=== PATIENT | male | born 1955 | race Caucasian/White ===

== ENCOUNTER 2016-12-31 09:49 | Emergency (ER) | payer OTHER ==
[~2016-12-31] VITALS: Ht 180.3 cm; Wt 96.1 kg
[~2016-12-31 09:49] MED LIST: ASPI81TA25 PO; ATOR-26 PO; CLOP1TAB15 PO; ISOS30TA3 PO; LOSA50TA6 PO; METO100T44 PO; METO50TA7 PO; NTRGSL/4 UT; PANT40TA PO
[2016-12-31 09:55] VITALS: TEMP 36.4; Ht 180.3 cm; Wt 96.1 kg
[2016-12-31] MEDS ORDERED: AMLO-110 PO (10:31)
[2016-12-31 10:33] LABS: BASO % 0.3 %; BASO ABS # 0.02 K/uL (0-0.2); COMPLETE YES; EOS % 3.2 %; HEMATOCRIT 48.2 % (42-52); IG% 0.3 %; LYMPH % 29.7 %; LYMPH ABS # 2.15 K/uL (1.2-3.4); MEAN CELL VOLUME 89.6 fL (80-100); MEAN CORPUSCULAR HEMOGLOBIN 29.9 pg (25-34); MEAN CORPUSCULAR HGB CONC 33.4 g/dl (32-36); MEAN PLATELET VOLUME 11.6 fL (7.4-10.4); MONO % 9.5 %; PLATELET COUNT 173 K/uL (130-400); RED BLOOD COUNT 5.38 M/uL (4.7-6.1); WHITE BLOOD COUNT 7.25 K/uL (4.8-10.8)
[2016-12-31 10:42] LABS: PARTIAL THROMBOPLASTIN RATIO 1.1; PROTHROMBIN TIME (PATIENT) 10.6 SECONDS (9.0-12.0)
[2016-12-31 10:52] LABS: ALT/SGPT 41 U/L (12-78); BLOOD UREA NITROGEN 30 mg/dl (7-18); BUN/CREATININE RATIO 22.9 (10-20); CALCIUM 9.6 mg/dl (8.5-10.1); CARBON DIOXIDE 23 mmol/L (21-32); CHLORIDE 104 mmol/L (98-107); CREATININE 1.31 mg/dl (0.60-1.40); GLUCOSE 105 mg/dl (70-99); POTASSIUM 4.7 mmol/L (3.5-5.1); SODIUM 139 mmol/L (136-145)
--- NOTE | 2016-12-31 10:52 | DIAGNOSTIC IMAGING REPORT ---
CHEST ONE VIEW PORTABLE CLINICAL HISTORY: 61 years-old Male presenting with severe hypertension. TECHNIQUE: Portable upright AP view of the chest was obtained. COMPARISON: 04/13/2012. FINDINGS: Cardiomediastinal silhouette normal. Calcified granuloma suggested at the right lung base. Lungs and pleural spaces otherwise clear. Osseous structures normal. Upper abdomen normal. IMPRESSION: 1. No acute cardiopulmonary disease. Electronically signed by: Vipul Carolina M.D. 12/31/2016 10:50 AM Dictated Date/Time: 12/31/2016 10:49 AM
[2016-12-31] MEDS ORDERED: SODIUM CHLORIDE 0.9% 500ML 500 ML IV STA (10:55)
--- NOTE | 2016-12-31 10:58 | EMERGENCY ROOM VISIT NOTE ---
History Report prepared by Valentin: Justino Navarrete Under the Supervision of: Dr. Damaso Vasquez M.D. First contact with patient: 10:09 Chief Complaint: HYPERTENSION Stated Complaint: ELEVATED BLOOD PRESSURE History of Present Illness The patient is a 61 year old male who presents to the Emergency Room with complaints of intermittent episodes of dizziness that began four days ago. At this time, he went to his PCP and was found to be hypertensive. He was started on Norvasc/Amlodipine and began to feel "very strange" ever since. He began to experience body cramping in places that he has never experienced cramping before. He also feels as if his blood pressure is elevated. He only feels "strange" thirty minutes after he takes his medication and notes that he wakes up in the morning feeling well. Pt denies LOC, headache, fevers, chills, diaphoresis, visual changes, neck pain, chest pain, breathing difficulties, nausea, vomiting, abdominal pain, back pain, melena, hematochezia, urinary symptoms, numbness, weakness, lymphadenopathy, rash, or other complaints. Source of History: patient Onset: four days ago Position: other (global) Symptom Intensity: moderate Quality: other (Dizziness) Timing: intermittent Note: He is experiencing randomized body cramping globally. Review of Systems See HPI for pertinent positives and negatives. A total of ten systems were reviewed and were otherwise negative. Past Medical & Surgical Medical Problems: (1) Acute non-ST segment elevation myocardial infarction (2) Benign prostatic hyperplasia (3) Gastroesophageal reflux disease (4) History of adenomatous polyp of colon (5) Percutaneous transluminal coronary angioplasty (6) Placement of stent in coronary artery (7) s/p colonoscopy (8) s/p repair deviated septum (9) s/p vasectomy Family History Omitted secondary to the patient's age. Social History Smoking Status: Former Smoker Alcohol Use: none Drug Use: none Marital Status: Housing Status: lives with family Occupation Status: employed Current/Historical Medications Scheduled Amlodipine (Norvasc), 5 MG PO DAILY Aspirin (Aspir-Low), 81 MG PO DAILY Atorvastatin (Lipitor), 80 MG PO QPM Isosorbide Mononitrate Ext Rel (Imdur Ext Rel), 30 MG PO QAM Losartan Potassium (Cozaar), 50 MG PO BID Nitroglycerin (Nitrostat), 0.4 MG UT PRN Pantoprazole (Protonix), 40 MG PO DAILY Allergies Coded Allergies: Diphenhydramine (Unverified Allergy, Unknown, UNKNOWN, 12/31/16) Physical Exam Vital Signs Date Time Temp Pulse Resp B/P (MAP) Pulse Ox O2 Delivery O2 Flow Rate FiO2 12/31/16 12:15 72 16 124/76 97 Room Air 12/31/16 12:08 75 95 Room Air 12/31/16 11:14 73 14 121/89 95 Room Air 12/31/16 11:08 97 Room Air 12/31/16 10:40 74 20 111/84 86 153/77 98 112/75 12/31/16 10:11 81 12/31/16 09:55 36.4 95 20 114/76 94 Room Air Physical Exam GENERAL: Awake, alert, well-appearing, in no distress HENT: Normocephalic, atraumatic. Oropharynx unremarkable. EYES: Normal conjunctiva. Sclera non-icteric. NECK: Supple. No nuchal rigidity. FROM. No JVD. RESPIRATORY: Clear to auscultation. CARDIAC: Regular rate, normal rhythm. Extremities warm and well perfused. Pulses equal. ABDOMEN: Soft, non-distended. No tenderness to palpation. No rebound or guarding. No masses. RECTAL: Deferred. MUSCULOSKELETAL: Chest examination reveals no tenderness. The back is symmetrical on inspection without obvious abnormality. There is no CVA tenderness to palpation. No joint edema. LOWER EXTREMITIES: Calves are equal size bilaterally and non-tender. No edema. No discoloration. NEURO: Normal sensorium. No sensory or motor deficits noted. SKIN: No rash or jaundice noted. Medical Decision & Procedures ER Provider Diagnostic Interpretation: Radiology results as stated below per my review and radiologist interpretation: CHEST ONE VIEW PORTABLE CLINICAL HISTORY: 61 years-old Male presenting with severe hypertension. TECHNIQUE: Portable upright AP view of the chest was obtained. COMPARISON: 04/13/2012. FINDINGS: Cardiomediastinal silhouette normal. Calcified granuloma suggested at the right lung base. Lungs and pleural spaces otherwise clear. Osseous structures normal. Upper abdomen normal. IMPRESSION: 1. No acute cardiopulmonary disease. Electronically signed by: Vipul Carolina M.D. 12/31/2016 10:50 AM Dictated Date/Time: 12/31/2016 10:49 AM Laboratory Results 12/31/16 10:10 Red Blood Count 5.38, Mean Corpuscular Volume 89.6, Mean Corpuscular Hemoglobin 29.9, Mean Corpuscular Hemoglobin Concent 33.4, Mean Platelet Volume 11.6, Neutrophils (%) (Auto) 57.0, Lymphocytes (%) (Auto) 29.7, Monocytes (%) (Auto) 9.5, Eosinophils (%) (Auto) 3.2, Basophils (%) (Auto) 0.3, Neutrophils # (Auto) 4.14, Lymphocytes # (Auto) 2.15, Monocytes # (Auto) 0.69, Eosinophils # (Auto) 0.23, Basophils # (Auto) 0.02 12/31/16 10:10 Test 12/31/16 10:10 12/31/16 11:10 White Blood Count 7.25 K/uL (4.8-10.8) Red Blood Count 5.38 M/uL (4.7-6.1) Hemoglobin 16.1 g/dL (14.0-18.0) Hematocrit 48.2 % (42-52) Mean Corpuscular Volume 89.6 fL (80-100) Mean Corpuscular Hemoglobin 29.9 pg (25-34) Mean Corpuscular Hemoglobin Concent 33.4 g/dl (32-36) Platelet Count 173 K/uL (130-400) Mean Platelet Volume 11.6 fL (7.4-10.4) Neutrophils (%) (Auto) 57.0 % Lymphocytes (%) (Auto) 29.7 % Monocytes (%) (Auto) 9.5 % Eosinophils (%) (Auto) 3.2 % Basophils (%) (Auto) 0.3 % Neutrophils # (Auto) 4.14 K/uL (1.4-6.5) Lymphocytes # (Auto) 2.15 K/uL (1.2-3.4) Monocytes # (Auto) 0.69 K/uL (0.11-0.59) Eosinophils # (Auto) 0.23 K/uL (0-0.5) Basophils # (Auto) 0.02 K/uL (0-0.2) RDW Standard Deviation 44.3 fL (36.4-46.3) RDW Coefficient of Variation 13.6 % (11.5-14.5) Immature Granulocyte % (Auto) 0.3 % Immature Granulocyte # (Auto) 0.02 K/uL (0.00-0.02) Prothrombin Time 10.6 SECONDS (9.0-12.0) Prothromb Time International Ratio 1.0 (0.9-1.1) Activated Partial Thromboplast Time 27.5 SECONDS (21.0-31.0) Partial Thromboplastin Ratio 1.1 Anion Gap 12.0 mmol/L (3-11) Est Creatinine Clear Calc Drug Dose 69.1 ml/min Estimated GFR () 67.2 Estimated GFR (Non- 57.9 BUN/Creatinine Ratio 22.9 (10-20) Calcium Level 9.6 mg/dl (8.5-10.1) Total Bilirubin 0.8 mg/dl (0.2-1) Direct Bilirubin 0.2 mg/dl (0-0.2) Aspartate Amino Transf (AST/SGOT) 32 U/L (15-37) Alanine Aminotransferase (ALT/SGPT) 41 U/L (12-78) Alkaline Phosphatase 57 U/L (45-117) Total Creatine Kinase 321 U/L (39-308) Creatine Kinase MB 6.7 ng/ml (0.5-3.6) Creatine Kinase MB Ratio 2.1 (0-3.0) Troponin I < 0.015 ng/ml (0-0.045) Total Protein 7.5 gm/dl (6.4-8.2) Albumin 4.0 gm/dl (3.4-5.0) Lipase 406 U/L (73-393) Thyroid Stimulating Hormone (TSH) 1.110 uIu/ml (0.300-4.500) Urine Color YELLOW Urine Appearance CLEAR (CLEAR) Urine pH 6.0 (4.5-7.5) Urine Specific [place] 1.017 (1.000-1.030) Urine Protein NEG (NEG) Urine Glucose (UA) NEG (NEG) Urine Ketones NEG (NEG) Urine Occult Blood NEG (NEG) Urine Nitrite NEG (NEG) Urine Bilirubin NEG (NEG) Urine Urobilinogen NEG (NEG) Urine Leukocyte Esterase NEG (NEG) Laboratory results reviewed by me Medications Administered Medications (Trade) Dose Ordered Sig/Brian Route Start Time Stop Time Status Last Admin Dose Admin Sodium Chloride 500 ml @ 999 mls/hr Q31M STAT IV 12/31/16 10:55 12/31/16 11:25 DC 12/31/16 10:40 999 MLS/HR ECG Indication: other (HTN) Rate (beats per minute): 81 Rhythm: normal sinus Findings: no acute ischemic change, no ectopy ED Course 1009: The patient was evaluated in room B3. A complete history and physical exam was performed. 1055: Ordered Sodium Chloride 500 ml @ 999 mls/hr IV 1200: Upon reevaluation, the patient feels well. 1205: I spoke with Dr. Phelps of Cardiology at this time. He recommended stopping the Amlodipine, but continuing the other medications. He would like the patient to follow up in his office within the next two weeks. 1225: The patient expressed his confusion with what wagita [employer] recommended in his past appoint four days ago. He misunderstood the medication changes. He is now clarified and understands the [employer]'s wishes. I updated Dr. Phelps as well. 1245: I reevaluated the patient. Discussed results and discharge instructions: He verbalized understanding and agreement. The patient is ready for discharge. Medical Decision Triage Nursing notes reviewed. The patient's presentation and history were concerning for dizziness, muscle cramping, and recent change in medication. Etiologies such as medication side effect, metabolic, infection, hypo/ hyperglycemia, electrolyte abnormalities, cardiac sources, intracerebral event, toxicologic, neurologic, as well as others were entertained. The patient was evaluated. Clinically he was doing well. He had no symptoms at this time although during orthostatic testing he was having muscle cramping. He did drop to 40 mmHg from seated to standing position. The patient was hydrated. Blood work was obtained. ECG was unremarkable. The patient's chest x-ray was as above. He had an unremarkable CBC and chemistry panel except for some mild dehydration. He had minimal elevation of lipase but had no abdominal pains to suggest pancreas issues. Cardiac markers were performed and were negative. The patient had a normal ambulatory pulse ox. He felt well. I discussed the case with cardiology. The patient inadvertently stopped his Lopressor and started the amlodipine. The instruction was to just add the amlodipine. This was clarified with the patient. Because he is having symptoms within an hour every day after taking amlodipine he will stop this. He will go back to his regular medication. He'll monitor his blood pressure he will follow-up in the office. If he has any recurrent symptoms or worsening problems he will come back to the Emergency Room for reevaluation. By the evaluation outlined above other emergent etiologies such as those listed in the differential, as well as others, were deemed relatively unlikely. The patient was educated about the findings as listed above. All questions were answered and the patient was pleased with the treatment. Return instructions were outlined and the patient was discharged in stable condition. The patient was referred to cardiology for follow-up for a recheck of the current condition. Medication Reconcilliation Current Medication List: was personally reviewed by me Blood Pressure Screening Patient's blood pressure: Normal blood pressure Blood pressure disposition: Did not require urgent referral Consults Time Called: 1200 Consulting Physician: Dr. Shearer - Cardiology Returned Call: 1205 He recommended stopping the Amlodipine and following up within the next two weeks. Additional Consults: Time Called: 1220 Consulted Physician: Dr. Phelps - Cardiology Returned Call: 1225 Additional Comments: He is aware of the patient's confusion and has clarified his wishes. Impression Primary Impression: Dizziness Additional Impression: Muscle cramps Scribe Attestation The scribe's documentation has been prepared under my direction and personally reviewed by me in its entirety. I confirm that the note above accurately reflects all work, treatment, procedures, and medical decision making performed by me. Departure Information Dispostion Home / Self-Care Referrals Vipul Escamilla M.D. (PCP) Abraham PhanDDionO. Forms HOME CARE DOCUMENTATION FORM, IMPORTANT VISIT INFORMATION, WORK / SCHOOL INSTRUCTIONS Patient Instructions My [facility] Additional Instructions Stop the amlodipine(Norvasc) medication. Restart your metoprolol 100 mg in the morning. Continue all other medications. Rest and drink plenty of fluids. No heavy exertion until symptoms resolve. Monitor blood pressure 2-3 times a day and record this for cardiology follow-up. Call the office on Tuesday for a follow-up within the next 1 week or sooner if needed. Return to the ER for chest pain, passing out, difficulty breathing, fevers, numbness, tingling, worsening of your condition, or as needed. Problem Qualifiers
[2016-12-31 11:03] LABS: ALKALINE PHOSPHATASE 57 U/L (45-117); AST/SGOT 32 U/L (15-37)
[2016-12-31 11:08] VITALS: O2SAT 97
[2016-12-31 11:21] LABS: CKMB/CK RATIO 2.1 (0-3.0)
[2016-12-31 11:24] LABS: URINE APPEARANCE CLEAR (CLEAR); URINE BILIRUBIN NEG (NEG); URINE COLOR YELLOW; URINE NITRITE NEG (NEG); URINE SPECIFIC GRAVITY 1.017 (1.000-1.030); UROBILINOGEN NEG (NEG)
[2016-12-31 11:31] LABS: MANUAL MICROSCOPIC REQUIRED? NO; REVIEW REQ? NO
[2016-12-31 12:15] VITALS: BP 124/76; PULSE 72; O2SAT 97
== END 2016-12-31 12:48 | disposition home or self-care (01) ==
LOC: C.EDB 09:50
DX: R42 Dizziness and giddiness (principal); R25.2 Cramp and spasm; E86.0 Dehydration; I10 Essential (primary) hypertension; I25.2 Old myocardial infarction; N40.0 Benign prostatic hyperplasia without lower urinary tract symptoms; K21.9 Gastro-esophageal reflux disease without esophagitis; Z86.010 Personal history of colon polyps; Z95.5 Presence of coronary angioplasty implant and graft; Z98.52 Vasectomy status; Z87.891 Personal history of nicotine dependence; Z79.82 Long term (current) use of aspirin; Z79.899 Other long term (current) drug therapy